=== PATIENT | male | born 1995 | race Caucasian/White ===

== ENCOUNTER → 2020-11-03 | Outpatient (CLI) | payer OTHER ==
[~2020-11-03] MED LIST: KEFLEX500 MG PO; PERCOCET 5-3251 EACH PO; TAMSULOSIN HCL0.4 M1 PO
== END ==
LOC: M.ULTRA 09:55
PROVIDERS: ATTEND Nurse Practitioner Family
DX: N50.3 Cyst of epididymis (principal); N43.3 Hydrocele, unspecified; N50.89 Other specified disorders of the male genital organs